=== PATIENT | female | born 1960 | race Caucasian/White ===

== ENCOUNTER → 2017-04-11 | Outpatient (CLI) | payer OTHER ==
--- NOTE | 2017-04-13 11:43 | MRI ---
HISTORY: Sciatica Study: MRI lumbar spine without contrast Comparison: None Technique: Multiplanar multi-sequence MRI of the lumbar spine was obtained. Sagittal T1, sagittal T2 , and stir weighted images, axial T1, and axial T2 images were obtained. Findings: The patient is status post L4-5 posterior fusion with hardware present. The lumbar spine demonstrates normal alignment with the expected signal characteristics of the bone marrow. The conus of the cord terminates normally. T12 -- L1: no evidence for compressive disc disease. The neural foramina are patent. The joints are normal. L1 -- L2: No evidence for compressive disc disease. The neural foramina are patent. The joints are no rmal. L2 -- L3: There is broad-based disc bulging present with a a left lateral disc protrusion. The disc b ulging effaces the thecal sac. The lateral disc protrusion contributes to significant lateral recess and foraminal narrowing on the left. There is mild lateral recess narrowing on the right. The joints are normal. L3 -- L4: Broad-based disc bulging efface the thecal sac and contributes along with ligamentous hyper trophy and pedicular shortening to a relative spinal stenosis with mild foraminal narrowing bilateral ly left worse than right. L4 -- L5: Status post fusion. The neural foramina are patent. L5 -- S1: No evidence for compressive disc disease. The neural foramina are patent. The joints are no rmal. IMPRESSION: As above Reported By:
== END | disposition home or self-care (01) | DRG 552 ==
LOC: RAD 08:34
PROVIDERS: ATTEND Specialist
DX: M53.80 Other specified dorsopathies, site unspecified (principal); M51.26 Other intervertebral disc displacement, lumbar region; M24.28 Disorder of ligament, vertebrae
CPT/HCPCS: 72148

== ENCOUNTER 2017-05-07 12:47 | Day surgery (SDC) | payer OTHER ==
[2017-05-07] MEDS ORDERED: XYLOCAINE 1 % (PLAIN) ONE (14:02)
[2017-05-07] MEDS ORDERED: MARCAINE 0.25% INJ ONE (14:03)
[2017-05-07] MEDS ORDERED: KENALOG INJ 40 MG IM ONE (14:06)
--- NOTE | 2017-05-07 14:06 | DR.UPDATE ---
H&P Update History and Physical Update: History and Physical reviewed and patient examined. Changes noted: NO Yes with the following:Agree with H&P from Dr Uribe. Will proceed with TFESI L2-3 right
[2017-05-07 15:03] VITALS: BP 128/64
== END 2017-05-07 14:45 | disposition home or self-care (01) | DRG 552 ==
LOC: SURG1 12:47
PROVIDERS: ATTEND Orthopaedic Surgery
PROC: 3E0R3BZ Introduction of Anesthetic Agent into Spinal Canal, Percutaneous Approach (ICD-10-PCS; 2017-05-07)
PROC: 3E0R33Z Introduction of Anti-inflammatory into Spinal Canal, Percutaneous Approach (ICD-10-PCS; principal; 2017-05-07 12:45)
DX: M54.41 Lumbago with sciatica, right side (principal)
CPT/HCPCS: 64483; 76000; S0020; J2001; J3301

== ENCOUNTER → 2017-07-25 | Day surgery (SDC) | payer OTHER ==
[~2017-07-25] MED LIST: KENALOG INJ 40 MG IM ONE; MARCAINE 0.25% INJ ONE; XYLOCAINE-MPF 1% ONE
--- NOTE | 2017-07-25 12:15 | DR.UPDATE ---
H&P Update History and Physical Update: History and Physical reviewed and patient examined. Changes noted: NO Yes with the following:Agree with H&P from Dr miller. will proceed with repeat tfesi L2-3 right
[2017-07-25 12:51] VITALS: BP 131/59
== END | disposition home or self-care (01) | DRG 552 ==
LOC: SURG1 11:50
PROVIDERS: ATTEND Specialist
PROC: 3E0R33Z Introduction of Anti-inflammatory into Spinal Canal, Percutaneous Approach (ICD-10-PCS; principal; 2017-07-25 12:00)
PROC: 3E0R3BZ Introduction of Anesthetic Agent into Spinal Canal, Percutaneous Approach (ICD-10-PCS; principal; 2017-07-25 12:00)
DX: M54.31 Sciatica, right side (principal)
CPT/HCPCS: 64483; 76000; S0020; J3301